=== PATIENT | male | born 1990 | race Caucasian/White ===

== ENCOUNTER 2020-08-25 20:31 | Emergency (ER) | payer MEDICAID, OTHER ==
[~2020-08-25 20:31] MED LIST: NO HOME MEDS
--- NOTE | 2020-08-25 20:47 | NUR ---
after pt checked in, per the screener, pt went back outside to his car and states he would come back inside to be triaged. pt still has not returned to be triaged.
== END 2020-08-25 21:29 | disposition left against medical advice (07) ==
LOC: ER 20:32
DX: R20.0 Anesthesia of skin (principal); Z53.21 Procedure and treatment not carried out due to patient leaving prior to being seen by health care provider

== ENCOUNTER 2020-08-28 13:14 | Emergency (ER) | payer MEDICAID, OTHER ==
[~2020-08-28] VITALS: Ht 170.2 cm; Wt 75.0 kg
[2020-08-28 16:44] VITALS: BP 114/69
== END 2020-08-28 16:56 | disposition home or self-care (01) ==
LOC: ER 13:15
DX: R20.2 Paresthesia of skin (principal); R20.0 Anesthesia of skin; G89.29 Other chronic pain; F17.200 Nicotine dependence, unspecified, uncomplicated; Z56.0 Unemployment, unspecified
CPT/HCPCS: 99281

== ENCOUNTER 2021-09-22 14:39 | Emergency (ER) | payer MEDICAID, OTHER ==
[~2021-09-22] VITALS: Ht 172.7 cm; Wt 77.0 kg
[2021-09-22 14:47] VITALS: BP 131/90
[2021-09-22] MEDS ORDERED: ketorolac trometh inj. 60 MG/2 ML VIAL IM ONE (14:50)
[2021-09-22] MEDS ORDERED: orphenadrine citrate 60mg/2ml inj. IM ONE (14:50)
[2021-09-22] MEDS ORDERED: ORPH100T2 PO (15:24)
[2021-09-22] MEDS ORDERED: KETO10TA2 PO (15:24)
[2021-09-22] MEDS ORDERED: HYDR-3965 PO (15:24)
== END 2021-09-22 15:33 | disposition home or self-care (01) ==
LOC: ER 14:41
DX: S13.4XXA Sprain of ligaments of cervical spine, initial encounter (principal); M62.838 Other muscle spasm; G89.29 Other chronic pain; Z59.00 Homelessness unspecified; Z79.899 Other long term (current) drug therapy; V87.7XXA Person injured in collision between other specified motor vehicles (traffic), initial encounter; Y93.89 Activity, other specified; Y92.488 Other paved roadways as the place of occurrence of the external cause; Y99.8 Other external cause status
CPT/HCPCS: 72040; 96372; 99284; J1885; J2360